=== PATIENT | male | born 1975 | race Caucasian/White ===

== ENCOUNTER 2018-02-20 12:36 | Emergency (ER) | payer SELFPAY ==
[2018-02-20 12:50] VITALS: BP 147/82; PULSE 77; RESP 14; TEMP 36.4; O2SAT 97
[2018-02-20] MEDS: methylPREDNISolone 125 MG/2 ML VIAL IV (13:00)
[2018-02-20] MEDS: diphenhydrAMINE 50 MG/ML VIAL 25 MG IV (13:00)
--- NOTE | 2018-02-20 13:03 | ED_ITS ---
HPI - Allergic Reaction General Chief complaint: Allergic Reaction Stated complaint: STUNG BY A BEE/ ALLERGIC Time Seen by Provider: 02/20/18 13:02 Source: patient Mode of arrival: ambulatory Limitations: no limitations History of Present Illness HPI narrative: 42-year-old male with a known anaphylactic reaction to bee sting states that he was stung on his left knee while in his truck. He did state that he took his EpiPen prior to arrival. States that his mouth feels dry otherwise no other complaints. Related Data Previous Rx's Medication Instructions Recorded epinephrine [EpiPen 2-Kevin] 0.3 mg IM Q10M PRN #1 each 02/20/18 Allergies Allergy/AdvReac Type Severity Reaction Status Date / Time venom-honey bee Allergy Unknown Unverified 11/18/17 12:19 [BEE VENOM (HONEY BEE)] BEE STINGS Allergy Severe Uncoded 11/18/17 12:19 Review of Systems Constitutional Denies fatigue and Denies fever(s) Eyes Denies itchy eyes ENT Ears, Nose, Mouth, and Throat: Denies vertigo, Denies dizziness, Denies lip swelling, Denies throat swelling and Denies tongue swelling Cardiovascular Denies chest pain, Denies palpitations and Denies dyspnea Respiratory Denies chest congestion, Denies cough, Denies dyspnea, Denies stridor and Denies wheezing Gastrointestinal Gastrointestinal: Denies constipation, Denies diarrhea, Denies nausea and Denies vomiting Genitourinary Denies dysuria and Denies flank pain Musculoskeletal Denies myalgias, Denies arthralgias and Denies joint swelling Comments: Bee sting to his left knee Integumentary/Breasts Denies rash and Reports wounds Neurologic Denies behavioral changes, Denies confusion, Denies vertigo and Denies dizziness Psychiatric Denies behavioral changes and Denies confusion Endocrine Denies fatigue and Denies palpitations Hematologic/Lymphatic Denies easy bleeding and Denies easy bruising Allergic/Immunologic Denies urticaria, Denies itchy eyes, Denies lip swelling, Denies throat swelling , Denies tongue swelling and Denies wheezing Exam Initial Vital Signs Initial Vital Signs: Vital Signs Temperature 97.6 F 02/20/18 12:50 Pulse Rate 77 02/20/18 12:50 Respiratory Rate 14 02/20/18 12:50 Blood Pressure 147/82 H 02/20/18 12:50 Pulse Oximetry 97 02/20/18 12:50 Const General: cooperative, healthy appearing, comfortable, well developed, well groomed and No acute distress Orientation: alert, awake and oriented x3 HENMT Head: normal to inspection, normocephalic and atraumatic Ears: hearing grossly normal bilaterally Nose: external nose normal Face and sinus: normal facial exam Mouth: oral mucosae normal, tongue normal, oropharynx normal and moist mucous membranes Chest Chest: normal inspection of the chest Resp Effort & Inspection: normal respiratory effort Auscultation: clear to auscultation bilaterally Cardio Rate: regular rate Rhythm: regular rhythm Heart Sounds: no murmurs GI Inspection: non-distended Palpation: soft, No firm and No tender Back/Spine/Pelvis Back: No CVA tenderness Skin Lesions: no lesions (Small pinpoint area of redness on his left anterior knee just proximal to the patella consistent with his stated history of bee sting) Rashes: no rashes Wounds: no wounds Neuro General: alert, awake and oriented x3 Cognition: normal cognition Speech: speech normal Gait: normal gait Motor: muscle tone normal throughout Sensory Exam: no sensory deficits noted Extrem General: normal to inspection, full ROM and capillary refill normal Psych Appearance: grossly normal, well kempt and not disheveled Course Orders Ordered: Discontinued Medications Diphenhydramine HCl (Benadryl) 25 mg IV NOW ONE Stop: 02/20/18 12:49 Last Admin: 02/20/18 13:00 Dose: 25 mg Famotidine (Pepcid) 20 mg in 50 mls @ 200 mls/hr IV NOW ONE Stop: 02/20/18 13:17 Last Infusion: 02/20/18 13:53 Dose: 0 mls/hr Admin: 02/20/18 13:10 Dose: 200 mls/hr Methylprednisolone (Solu-Medrol 125 Mg Vial) 125 mg IV NOW ONE Stop: 02/20/18 12:50 Last Admin: 02/20/18 13:00 Dose: 125 mg Vital Signs - 8 hr 02/20/18 12:50 Temperature 97.6 F Pulse Rate 77 Respiratory Rate 14 Blood Pressure 147/82 H Pulse Oximetry 97 MDM - Allergic Reaction MDM Narrative Medical decision making narrative: Patient given himself his EpiPen prior to arrival. He was given Solu-Medrol and H1 and H2 blockers here in the emergency department. He was observed here in the ER for approximately 4 hr after he gave himself his epinephrine without return of any symptoms. The bee sting on his left knee looks well. No signs of infection. I did refill his epi pens. He was given return precautions. He felt safe going home. He expressed understanding and agreement with plan Discharge Plan Departure Patient Disposition: Home, Self-Care Clinical Impression: Allergic reaction, Insect bite or sting Discharge Date/Time: 02/20/18 15:37 Interventions: ED Discharge Assessment Last Done: 02/20/18 15:33 Instructions: DI for Insect Bites and Stings Activity Restrictions/Additional Instructions: Make sure you keep an EpiPen with you. If you ever use your EpiPen in the future you do need to return to the emergency department. Return to the emergency department for any new symptoms, shortness of breath, rashes, vomiting or any other new or worsening symptoms Prescriptions: New epinephrine [EpiPen 2-Kevin] 0.3 mg/0.3 mL auto-injector 0.3 mg IM Q10M PRN (Reason: hypersensitivity reaction) Qty: 1 RF: 0
[2018-02-20] MEDS: FAMOTIDINE 20 MG/50 ML PIGGYBACK 200 MG IV (13:10)
[2018-02-20 13:14] VITALS: BP 143/83; PULSE 76; RESP 13; O2SAT 95
[2018-02-20 14:11] VITALS: BP 127/78; PULSE 66; RESP 13; O2SAT 95
[2018-02-20 14:30] VITALS: BP 120/83; PULSE 67; RESP 17; O2SAT 95
[2018-02-20 15:13] VITALS: BP 116/74; PULSE 68; RESP 15; O2SAT 96
[2018-02-20 15:33] VITALS: BP 116/74; PULSE 75; RESP 16; O2SAT 95
== END 2018-02-20 15:37 | disposition home or self-care (01) ==
PROVIDERS: Emergency Provider Emergency Medicine
DX: T63.441A Toxic effect of venom of bees, accidental (unintentional), initial encounter (principal)
CPT/HCPCS: 36591; 96365; 96375; 99283; 99284; J1200; J2930

== ENCOUNTER → 2019-09-08 11:35 | Outpatient (CLI) | payer OTHER, MEDICAID, SELFPAY ==
[2019-09-08 12:41] LABS: Add Manual Diff / Slide Review NO; Basophils Absolute Auto 0 /uL (0-100); Basophils Percent Auto 0.3 % (0-2); Eosinophils Absolute Auto 200 /uL (0-450); Eosinophils Percent Auto 2.5 % (2-4); Hematocrit 46.3 % (41-53); Hemoglobin 15.8 g/dL (13.5-17.5); Lymphocytes Absolute Auto 2300 /uL (1100-4500); Lymphocytes Percent Auto 32.2 % (25-40); Mean Corpuscular HGB Conc 34.1 % (30-36); Mean Corpuscular Hemoglobin 29.8 PG (26-34); Mean Corpuscular Volume 87.4 fL (80-100); Monocytes Absolute Auto 700 /uL (0-900); Monocytes Percent Auto 9.4 % (3-14); Neutrophils Absolute Auto 4000 /uL (1500-7000); Neutrophils Percent Auto 55.6 % (50-75); Platelet Count 227 X10^3/uL (150-400); Red Blood Cell Count 5.29 X10^6/uL (4.5-5.9); White Blood Cell Count 7.2 X10^3/uL (4.5-11.0)
[2019-09-08 12:57] LABS: Hemoglobin A1C% w Est Avg Glu 5.1 % (4.0-6.0)
[2019-09-08 13:56] LABS: Thyroid Stimulating Hormone 0.76 uIU/mL (0.47-4.68)
[2019-09-08 14:06] LABS: Alanine Aminotransferase 46 IU/L (<50); Albumin 4.6 g/dL (3.5-5.0); Albumin Globulin Ratio 1.5 (1.0-2.8); Alkaline Phosphatase 104 U/L (38-126); Aspartate Aminotransferase 34 IU/L (17-59); Bilirubin Total 0.4 mg/dL (0.2-1.3); Blood Urea Nitrogen 20 mg/dL (9-20); Calcium 9.5 mg/dL (8.4-10.2); Carbon Dioxide 24 mmol/L (22-32); Chloride 103 mmol/L (98-107); Cholesterol 195 mg/dL (140-199); Estimated Glomerular Filt Rate > 60.0 mL/min (>60); Globulin 3.1 g/dL (1.7-4.1); Glucose 89 mg/dL (70-100); HDL Cholesterol 47 mg/dL (40-60); HEMOLYSIS < 15 (0-50); LDL Cholesterol Calculated 111 mg/dL (<100); Potassium 4.4 mmol/L (3.4-5.1); Sodium 139 mmol/L (137-145); Total Protein 7.7 g/dL (6.3-8.2); Triglycerides 185 mg/dL (35-150)
[2019-09-08 15:34] LABS: Appearance Urine UA CLEAR; Bilirubin Urine UA NEGATIVE (NEGATIVE); Color Urine UA YELLOW; Glucose Urine UA NEGATIVE (Negative); Ketones Urine UA NEGATIVE (NEGATIVE); Leukocyte Esterase Urine UA NEGATIVE (NEGATIVE); Nitrite Urine UA NEGATIVE (Negative); Occult Blood Urine UA NEGATIVE (Negative); Protein Urine UA NEGATIVE (Negative); Urobilinogen Urine UA 0.2 E.U./dL (0.2)
== END ==
PROVIDERS: PCP Family Medicine; Visit Provider Family Medicine
DX: Z13.9 Encounter for screening, unspecified (principal)
CPT/HCPCS: 36415; 80053; 80061; 81003; 83036; 84443; 85025

== ENCOUNTER 2020-03-26 15:37 | Emergency (ER) | payer OTHER, MEDICAID, SELFPAY ==
[2020-03-26] VITALS (7 sets, daily range): BP systolic 122–158; BP diastolic 73–85; PULSE 66–80; RESP 17–22; TEMP 36.5; O2SAT 96–99; BMI 29.5
[2020-03-26] MEDS: SODIUM CHLORIDE 0.9% 1,000 ML 1000 ML IV (15:47)
[2020-03-26] MEDS: methylPREDNISolone 125 MG/2 ML VIAL IV (15:48)
[2020-03-26] MEDS: FAMOTIDINE 20 MG/50 ML PIGGYBACK 200 MG IV (15:48)
[2020-03-26] MEDS: diphenhydrAMINE 50 MG/ML VIAL IV (15:48)
--- NOTE | 2020-03-26 19:19 | ED_ITS ---
HPI - Allergic Reaction <LOUIE Gallo-BC - Last Filed: 03/26/20 19:29> General Chief complaint: Allergic Reaction Stated complaint: BEE STING ALLERGIC Time Seen by Provider: 03/26/20 15:40 Source: patient Mode of arrival: Ambulatory Limitations: no limitations History of Present Illness HPI narrative: The patient is a 44-year-old male with history of anaphylaxis who presents with a chief complaint of an allergic reaction to a bee sting. He is a former smoker, states that once he was stung by over 20 bees at the same time and had an anaphylactic reaction. He states he was stung by a bee about 20 minutes prior to arrival. He unfortunately did not his EpiPen with him as he was in a different vehicle. He presents to the emergency department denying any shortness of breath but complaining of stinging in his mouth and cheeks as well as his arm. He has not taken anything since the sting. He states he does not feel as though this is as bad as his previous reactions, though is concerned about the possibility. Related Data Previous Rx's Medication Instructions Recorded epinephrine [EpiPen 2-Kevin] 0.3 mg IM Q10M PRN #1 each 02/20/18 epinephrine 0.3 mg IM Q5-15M PRN #2 each 03/26/20 Allergies Allergy/AdvReac Type Severity Reaction Status Date / Time venom-honey bee Allergy Unknown Verified 03/26/20 15:45 [BEE VENOM (HONEY BEE)] BEE STINGS Allergy Severe Anaphylaxis Uncoded 03/26/20 15:45 Review of Systems <CHANDA Gallo - Last Filed: 03/26/20 19:29> Review of Systems Narrative: GENERAL: Denies chills, fatigue, malaise, fever, sweats. HEENT: See HPI RESPIRATORY: See HPI CARDIOVASCULAR: Denies chest pain, palpitations, orthopnea, edema, GASTROINTESTINAL: Denies nausea, vomiting, abdominal pain, diarrhea, constipation, melena. : Denies dysuria, frequency, incontinence, hematuria, urinary retention. MUSCULOSKELETAL: denies weakness, joint pain, or bony pain SKIN: Denies rash, skin lesions, or other NEUROLOGIC: Denies weakness, headache, numbness, change in speech, confusion, seizures, incoordination. PSYCHIATRIC: No concerning psychosocial issues. 12 point review of systems is negative except for those stated above Patient History <KRISTI Gallo - Last Filed: 03/26/20 19:29> Medical History (Updated 03/26/20 @ 17:49 by KRISTI Gallo) Fractures (Resolved) Migraines (Chronic) MRSA (methicillin resistant Staphylococcus aureus) (Resolved ~2011) Well adult (Acute) Family History (Updated 09/13/19 @ 21:51 by Vilma Grewal) Father Diabetes mellitus Hypertension Mother Hypertension Grandmother Breast cancer Social History Smoking Status: Former smoker alcohol intake: current (1-3 drinks per weeks) substance use type: former substance user (not used since 1999), marijuana, crack/cocaine, amphetamines, hallucinogens, 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 Normocephalic. No temporal or scalp tenderness. EYES: Pupils equal round and reactive. Extraocular motions intact. No scleral icterus. No injection or drainage. ENT: Nose without bleeding, purulent drainage or septal hematoma. Throat without erythema, tonsillar hypertrophy or exudate. Uvula midline. Airway patent. No oropharyngeal swelling noted NECK: Trachea midline. No JVD or lymphadenopathy. Supple, nontender, no meningeal signs. CARDIOVASCULAR: Regular rate and rhythm RESPIRATORY: Clear to auscultation. Breath sounds equal bilaterally. No wheezes, rales, or rhonchi. No cough. No increased respiratory effort. Speaking full sentences. GASTROINTESTINAL: Abdomen soft, non-tender, nondistended. No hepato- splenomegaly, or palpable masses. No guarding. EXTREMITIES: No clubbing, cyanosis, or edema. No joint tenderness, effusion, or edema noted. Using all extremities equally. BACK: Nontender without deformity or crepitance. No flank tenderness. NEURO: AOx3. SKIN: No rash or erythema on visible skin Initial Vital Signs Initial Vital Signs: Vital Signs Temperature 97.7 F 03/26/20 15:41 Respiratory Rate 22 03/26/20 15:41 Blood Pressure 158/77 H 03/26/20 15:41 <Yue Johnston DO - Last Filed: 03/26/20 20:42> Initial Vital Signs Initial Vital Signs: Vital Signs Temperature 97.7 F 03/26/20 15:41 Respiratory Rate 22 03/26/20 15:41 Blood Pressure 158/77 H 03/26/20 15:41 Scores <KRISTI Gallo - Last Filed: 03/26/20 19:29> GCS [place] coma scale eye opening: Spontaneous [place] coma scale verbal response: Orientated [place] coma scale motor response: Obey commands [place] coma scale total score: 15 Course <KRISTI Gallo - Last Filed: 03/26/20 19:29> Orders Ordered: Discontinued Medications Diphenhydramine HCl (Benadryl) 50 mg IV NOW ONE Stop: 03/26/20 15:44 Last Admin: 03/26/20 15:48 Dose: 50 mg Documented by: FERMIN Famotidine (Pepcid) 20 mg in 50 mls @ 200 mls/hr IV NOW ONE Stop: 03/26/20 15:57 Last Infusion: 03/26/20 16:10 Dose: 0 mls/hr Documented by: Admin: 03/26/20 15:48 Dose: 200 mls/hr Documented by: FERMIN Sodium Chloride (Normal Saline 0.9%) 1,000 mls @ 1,000 mls/hr IV BOLUS PRN PRN Reason: Fluid replacement Last Admin: 03/26/20 15:47 Dose: 1,000 mls/hr Documented by: FERMIN Methylprednisolone (Solu-Medrol 125 Mg Vial) 125 mg IV NOW ONE Stop: 03/26/20 15:44 Last Admin: 03/26/20 15:48 Dose: 125 mg Documented by: FERMIN Vital Signs Vital signs: Vital Signs - 8 hr 03/26/20 15:41 03/26/20 15:44 03/26/20 15:46 Temperature 97.7 F Pulse Rate 76 80 Respiratory Rate 22 18 Blood Pressure 158/77 H 152/85 H Pulse Oximetry 99 03/26/20 16:00 03/26/20 16:30 03/26/20 17:00 Temperature Pulse Rate 74 66 66 Respiratory Rate 22 17 19 Blood Pressure 136/74 122/76 127/73 Pulse Oximetry 98 98 96 03/26/20 17:30 Temperature Pulse Rate 66 Respiratory Rate 18 Blood Pressure 126/77 Pulse Oximetry 97 <Yue Johnston DO - Last Filed: 03/26/20 20:42> Orders Ordered: Discontinued Medications Diphenhydramine HCl (Benadryl) 50 mg IV NOW ONE Stop: 03/26/20 15:44 Last Admin: 03/26/20 15:48 Dose: 50 mg Documented by: FERMIN Famotidine (Pepcid) 20 mg in 50 mls @ 200 mls/hr IV NOW ONE Stop: 03/26/20 15:57 Last Infusion: 03/26/20 16:10 Dose: 0 mls/hr Documented by: Admin: 03/26/20 15:48 Dose: 200 mls/hr Documented by: FERMIN Sodium Chloride (Normal Saline 0.9%) 1,000 mls @ 1,000 mls/hr IV BOLUS PRN PRN Reason: Fluid replacement Last Admin: 03/26/20 15:47 Dose: 1,000 mls/hr Documented by: FERMIN Methylprednisolone (Solu-Medrol 125 Mg Vial) 125 mg IV NOW ONE Stop: 03/26/20 15:44 Last Admin: 03/26/20 15:48 Dose: 125 mg Documented by: FERMIN Vital Signs Vital signs: Vital Signs - 8 hr 03/26/20 15:41 03/26/20 15:44 03/26/20 15:46 Temperature 97.7 F Pulse Rate 76 80 Respiratory Rate 22 18 Blood Pressure 158/77 H 152/85 H Pulse Oximetry 99 03/26/20 16:00 03/26/20 16:30 03/26/20 17:00 Temperature Pulse Rate 74 66 66 Respiratory Rate 22 17 19 Blood Pressure 136/74 122/76 127/73 Pulse Oximetry 98 98 96 03/26/20 17:30 Temperature Pulse Rate 66 Respiratory Rate 18 Blood Pressure 126/77 Pulse Oximetry 97 MDM - Allergic Reaction <LOUIE Gallo-BC - Last Filed: 03/26/20 19:29> MDM Narrative Medical decision making narrative: The patient is a 44 year male who presents with a chief complaint of an allergic reaction to bee stings. He has history of anaphylactic reactions to bee sting, however did not need epinephrine today. He responded well to steroids, Benadryl, and H2 soledad. He was observed over 2 hours in the emergency department and stated he was ready go home. I did give him another prescription of EpiPen and we discussed at length keeping EpiPen with him at all times. I discussed at length monitoring for any signs of further allergic reactions or pharyngeal swelling, difficulty etcetera. Patient has no questions or concerns upon discharge and states understanding return precautions as well as follow-up care. He has remained hemodynamically stable throughout his stay in the emergency department. Discharge Plan Departure Patient Disposition: Home Clinical Impression: Allergic reaction Qualifiers: Encounter type: initial encounter Qualified Code(s): T78.40XA - Allergy, unspecified, initial encounter Discharge Date/Time: 03/26/20 18:06 Instructions: DI for Anaphylaxis, DI for General Allergic Reactions Activity Restrictions/Additional Instructions: Thank you for trusting us with your care today. As discussed, we treated you for an allergic reaction with steroids, Benadryl, and a type to histamine soledad I have given you a refill of your EpiPen, which I sent to [facility]. As discussed, please come back to the emergency department for any acute concerns such as shortness of breath etcetera Please follow-up with primary care provider in the next few days As discussed, please keep an EpiPen with you at all times. Prescriptions: New epinephrine 0.3 mg/0.3 mL auto-injector 0.3 mg IM Q5-15M PRN (Reason: anaphylaxis) Qty: 2 RF: 0 No Action epinephrine [EpiPen 2-Kevin] 0.3 mg/0.3 mL auto-injector 0.3 mg IM Q10M PRN (Reason: hypersensitivity reaction) Qty: 1 RF: 0 Referrals: Venancio Ontiveros DO [Primary Care Provider] - <Yue Johnston DO - Last Filed: 03/26/20 20:42> Cosign ED Attending Babar Attestation: I was immediately available in the department for consultation. Documentation has been reviewed. I agree with assessment and plan.
== END 2020-03-26 18:06 | disposition home or self-care (01) ==
PROVIDERS: Emergency Provider Nurse Practitioner Family; PCP Family Medicine
DX: T78.40XA Allergy, unspecified, initial encounter (principal); T63.441A Toxic effect of venom of bees, accidental (unintentional), initial encounter
CPT/HCPCS: 36415; 96365; 96375; 99284; J1200; J2930

== ENCOUNTER → 2020-05-10 10:12 | Outpatient (CLI) | payer OTHER, MEDICAID, SELFPAY ==
[2020-05-10 11:54] LABS: Specimen Label KIT
== END ==
PROVIDERS: PCP Family Medicine; Referring Provider Obstetrics & Gynecology; Visit Provider Obstetrics & Gynecology
DX: Z13.9 Encounter for screening, unspecified (principal)
CPT/HCPCS: 36415; 99001

== ENCOUNTER → 2021-01-22 14:45 | Outpatient (CLI) | payer OTHER, SELFPAY ==
--- NOTE | 2021-01-22 14:47 | DI.RAD.S_ITS ---
PROCEDURE: XR FINGER LT MIN 2V INDICATIONS: eval L INDEX fingertip crush injury 01/18/2021 TECHNIQUE: AP hand, 2 views of the 2nd finger(s) acquired. COMPARISON: None. FINDINGS: Bones: No dislocations. No suspicious bony lesions. Distal tuft fracture 2nd digit Soft tissues: No suspicious soft tissue calcifications. IMPRESSION: Soft tissue swelling and distal tuft fracture 2nd digit. 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 Dictated by: Quincy Carolina M.D. on 01/22/2021 at 15:27 Approved by: Quincy Carolina M.D. on 01/22/2021 at 15:28
== END ==
PROVIDERS: PCP Family Medicine; Referring Provider Registered Nurse Diabetes Educator; Visit Provider Registered Nurse Diabetes Educator
DX: S67.191A Crushing injury of left index finger, initial encounter (principal); S62.631A Displaced fracture of distal phalanx of left index finger, initial encounter for closed fracture; M19.042 Primary osteoarthritis, left hand; M79.89 Other specified soft tissue disorders; X58.XXXA Exposure to other specified factors, initial encounter
CPT/HCPCS: 73140

== ENCOUNTER → 2021-10-02 17:30 | Outpatient (CLI) | payer OTHER, SELFPAY ==
[2021-10-02 17:49] LABS: Semen Sperm Prescence Post-Vas Absent (ABSENT)
[2021-10-02 19:49] LABS: HIV 1 & 2 Ab/Ag 4th Gen Combo NEGATIVE (NEGATIVE); Hep C Virus Ab w/Reflex Quant NEGATIVE s/c (NEGATIVE)
[2021-10-03 02:36] LABS: Hepatitis B Surf AB Quant <3.1 mIU/mL (Immunity>9.9)
[2021-10-03 07:40] LABS: RPR Screen Non Reactive (Non Reactive)
== END ==
PROVIDERS: PCP Family Medicine; Referring Provider Obstetrics & Gynecology Reproductive Endocrinology; Visit Provider Family Medicine
DX: Z11.3 Encounter for screening for infections with a predominantly sexual mode of transmission (principal); Z11.59 Encounter for screening for other viral diseases; Z11.4 Encounter for screening for human immunodeficiency virus [HIV]
CPT/HCPCS: 36415; 86592; 86706; 86803; 87389; 89321

== ENCOUNTER → 2021-10-19 12:32 | Outpatient (CLI) | payer OTHER, SELFPAY ==
[2021-10-21 20:34] LABS: Hepatitis B Surface Antigen NEGATIVE s/c (NEGATIVE)
== END ==
PROVIDERS: PCP Family Medicine; Referring Provider Obstetrics & Gynecology Reproductive Endocrinology; Visit Provider Obstetrics & Gynecology Reproductive Endocrinology
DX: Z11.3 Encounter for screening for infections with a predominantly sexual mode of transmission (principal); Z11.59 Encounter for screening for other viral diseases
CPT/HCPCS: 36415; 87340

== ENCOUNTER 2022-05-03 16:40 | Emergency (ER) | payer OTHER, SELFPAY ==
[2022-05-03 18:12] VITALS: BP 165/96; PULSE 61; RESP 20; TEMP 36.2; O2SAT 99; BMI 28.8
[2022-05-03 18:32] LABS: Add Manual Diff / Slide Review NO; Basophils Absolute Auto 0 /uL (0-100); Basophils Percent Auto 0.4 % (0-2); Eosinophils Absolute Auto 100 /uL (0-450); Eosinophils Percent Auto 1.4 % (2-4); Hematocrit 44.4 % (41-53); Hemoglobin 15.5 g/dL (13.5-17.5); Lymphocytes Absolute Auto 1700 /uL (1100-4500); Lymphocytes Percent Auto 20.8 % (25-40); Mean Corpuscular HGB Conc 34.8 % (30-36); Mean Corpuscular Hemoglobin 29.9 PG (26-34); Monocytes Absolute Auto 600 /uL (0-900); Monocytes Percent Auto 7.6 % (3-14); Neutrophils Absolute Auto 5600 /uL (1500-7000); Neutrophils Percent Auto 69.8 % (50-75); Platelet Count 214 X10^3/uL (150-400); Red Blood Cell Count 5.17 X10^6/uL (4.5-5.9); Red Cell Distribution Width 13.2 % (11.6-14.8)
[2022-05-03 18:43] LABS: Alanine Aminotransferase 36 IU/L (<50); Albumin 4.7 g/dL (3.5-5.0); Albumin Globulin Ratio 1.3 (1.0-2.8); Alkaline Phosphatase 64 U/L (38-126); Aspartate Aminotransferase 37 IU/L (17-59); BUN Creatinine Ratio 25.4 (6-22); Bilirubin Total 0.5 mg/dL (0.2-1.3); Blood Urea Nitrogen 16 mg/dL (9-20); Calcium 9.9 mg/dL (8.4-10.2); Carbon Dioxide 25 mmol/L (22-32); Chloride 104 mmol/L (98-107); Estimated Glomerular Filt Rate > 60 mL/min (>60); Globulin 3.5 g/dL (1.7-4.1); Glucose 92 mg/dL (70-100); HEMOLYSIS 58 (0-50); Lipase 73 U/L (23-300); Potassium 4.3 mmol/L (3.4-5.1); Sodium 140 mmol/L (137-145); Total Protein 8.2 g/dL (6.3-8.2)
--- NOTE | 2022-05-04 00:02 | ED.CHESTPAIN ---
HPI - Chest Pain General Chief Complaint: Abdominal Pain Stated Complaint: sharp pain in rib cage Time Seen by Provider: 05/03/22 23:55 Source: patient Mode of arrival: Ambulatory Limitations: no limitations History of Present Illness HPI narrative: This is a 46-year-old male with no known medical issues has had a prior vasectomy. Patient was eating a ghost pepper today he states that he immediately afterwards had pain like a charcoal in his stomach that lasted for about an hour and has since resolved and maybe moved a little bit further through his gut. Patient states he has had spicy foods frequently he sometimes gets a warm belly or gut but states never had pain intense like this. States he is had similar peppers in the past although this is different. Patient does note that for the past 3 weeks he is had a little bit of bloating, he states 9 spicy foods have not been problematic noticed this seems to happen more when he eats. He denies fevers or chills. No chest pain or shortness of breath. He was nauseated today but had no vomiting. No diarrhea, no constipation, no black or bloody stools. No dysuria urgency or frequency. Denies daily medications, his only surgeries vasectomy. He is allergic to bees. No tobacco occasional alcohol, no illicit. Dr. Ontiveros is his primary care. Related Data Previous Rx's Medication Instructions Recorded epinephrine 0.3 mg/0.3 mL 0.3 mg (0.3 mL) IM Q10M PRN 02/20/18 injection, auto-injector (EpiPen hypersensitivity reaction #1 ea 2-Kevin) diazepam 10 mg tablet (Valium) 10 mg PO BEDTIME PRN sedation #1 05/16/21 tab oxycodone-acetaminophen 5 mg-325 1 tab PO ONCE PRN pain #2 tabs 05/16/21 mg tablet (Percocet) triamcinolone acetonide 0.5 % 1 applic topical BID #15 grams 06/18/21 topical cream Allergies Allergy/AdvReac Type Severity Reaction Status Date / Time venom-honey bee Allergy Unknown Verified 06/18/21 16:09 [BEE VENOM (HONEY BEE)] BEE STINGS Allergy Severe Anaphylaxis Uncoded 06/18/21 16:09 Review of Systems Review of Systems ROS Unobtainable: All systems reviewed & are unremarkable except as noted in HPI and below Patient History Medical History Fractures Migraines MRSA (methicillin resistant Staphylococcus aureus) (~2011) Well adult Family History Father Diabetes mellitus Hypertension Mother Hypertension Grandmother Breast cancer Social History Smoking Status: Former smoker alcohol intake: current substance use type: former substance user, marijuana, crack/cocaine, amphetamines, hallucinogens, 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 RESPIRATORY: Breath sounds equal bilaterally, no wheezes rales or rhonchi. ABDOMEN: Soft, nontender. Normoactive bowel sounds all 4 quadrants. No guarding or rebound, rigidity, no mass : No CVA tenderness EXTREMITIES: Normal range of motion, no clubbing or edema. Neurovascularly intact NEUROLOGICAL: Cranial nerves II through XII grossly intact. Moving all extremities SKIN: Warm, dry, no petechiae, no rashes or lesions. Initial Vital Signs Initial Vital Signs: Vital Signs Temperature 97.1 F L 05/03/22 18:12 Pulse Rate 61 05/03/22 18:12 Respiratory Rate 20 05/03/22 18:12 Blood Pressure 165/96 H 05/03/22 18:12 Pulse Oximetry 99 05/03/22 18:12 Oxygen Delivery Method 05/03/22 18:12 Course Orders Ordered: ED Orders 05/04/22 00:05 Troponin & CK Cardiac Panel Stat Vital Signs Vital signs: Vital Signs - 8 hr 05/04/22 00:54 Pulse Rate 58 L Respiratory Rate 18 Blood Pressure 140/91 H Pulse Oximetry 99 Oxygen Delivery Method Room Air MDM - Chest Pain Lab Data Result diagrams: 05/03/22 18:00 05/03/22 18:00 Labs: Lab Results 05/03/22 05/03/22 05/03/22 Range/Units 18:00 18:00 18:20 WBC 8.0 (4.5-11.0) X10^3/uL RBC 5.17 (4.5-5.9) X10^6/uL Hgb 15.5 (13.5-17.5) g/dL Hct 44.4 (41-53) % MCV 86.0 (80-100) fL MCH 29.9 (26-34) PG MCHC 34.8 (30-36) % RDW 13.2 (11.6-14.8) % Plt Count 214 (150-400) X10^3/uL Neut % (Auto) 69.8 (50-75) % Lymph % (Auto) 20.8 L (25-40) % [place] % (Auto) 7.6 (3-14) % Eos % (Auto) 1.4 L (2-4) % Baso % (Auto) 0.4 (0-2) % Neut # (Auto) 5600 (2522-1161) /uL Lymph # (Auto) 1700 (7309-1102) /uL [place] # (Auto) 600 (0-900) /uL Eos # (Auto) 100 (0-450) /uL Baso # (Auto) 0 (0-100) /uL Sodium 140 (137-145) mmol/L Potassium 4.3 (3.4-5.1) mmol/L Chloride 104 (98-107) mmol/L Carbon Dioxide 25 (22-32) mmol/L BUN 16 (9-20) mg/dL Creatinine 0.63 L (0.66-1.25) mg/dL Estimated GFR > 60 (>60) mL/min BUN/Creatinine Ratio 25.4 H (6-22) Glucose 92 (70-100) mg/dL Calcium 9.9 (8.4-10.2) mg/dL Total Bilirubin 0.5 (0.2-1.3) mg/dL AST 37 (17-59) IU/L ALT 36 (<50) IU/L Alkaline Phosphatase 64 (38-126) U/L Total Creatine Kinase 195 H (55-170) U/L CK-MB (CK-2) 2.47 H (<2.37) ng/mL CK-MB (CK-2) Rel Index 1.3 L (1.5-5.0) % Troponin I < 0.012 (0.01-0.034) ng/mL Total Protein 8.2 (6.3-8.2) g/dL Albumin 4.7 (3.5-5.0) g/dL Globulin 3.5 (1.7-4.1) g/dL Albumin/Globulin Ratio 1.3 (1.0-2.8) Lipase 73 (23-300) U/L ECG Data Attestation: I personally reviewed and interpreted this ECG as follows: Prior ECG tracings: not available for review Interpretation: Sinus bradycardia incomplete right bundle-branch. Rate of 58 [place] 184 QRS of 100 and QTC of 408. No acute ST changes noted. Patient does not have priors for comparison MDM Narrative Medical decision making narrative: This is a 46-year-old male who presents with epigastric abdominal pain that presented shortly after ingesting a ghost pepper. Patient's EKG shows incomplete right bundle-branch but has no priors for comparison, CBC, CMP, lipase are negative as well as troponin. Discharge Plan Departure Patient Disposition: Home Clinical Impression: Acute epigastric pain Activity Restrictions/Additional Instructions: I believe your discomfort today was from the pepper you ingested. If you have persistent discomfort with spicy foods or regular foods would recommend Pepcid 40 mg once daily and follow-up with your physician to have an EGD to evaluate for ulcers or gastritis. Please return if you are having new or worsening symptoms, persistent pain, fevers, vomiting, chest pain or shortness of breath or other new or concerning symptoms. Prescriptions: No Action diazepam [Valium] 10 mg tablet 10 mg PO BEDTIME PRN (Reason: sedation) Qty: 1 0RF oxycodone-acetaminophen [Percocet] 5-325 mg tablet 1 tab PO ONCE PRN (Reason: pain) Qty: 2 0RF triamcinolone acetonide 0.5 % cream 1 applic topical BID Qty: 15 1RF epinephrine [EpiPen 2-Kevin] 0.3 mg/0.3 mL auto-injector 0.3 mg IM Q10M PRN (Reason: hypersensitivity reaction) Qty: 1 0RF Rx Instructions: until response Referrals: Venancio Ontiveros, DO [Primary Care Provider] - Visit Report Forms: Patient Portal/API
[2022-05-04 00:32] LABS: Creatine Kinase 195 U/L (55-170)
[2022-05-04 00:45] LABS: Troponin I < 0.012 ng/mL (0.01-0.034)
[2022-05-04 00:47] LABS: CKMB % Relative Index 1.3 % (1.5-5.0); Creatine Kinase MB 2.47 ng/mL (<2.37)
[2022-05-04 00:54] VITALS: BP 140/91; PULSE 58; RESP 18; O2SAT 99
== END 2022-05-04 00:58 | disposition home or self-care (01) ==
PROVIDERS: Emergency Provider Emergency Medicine; PCP Family Medicine
DX: R10.13 Epigastric pain (principal); R11.0 Nausea
CPT/HCPCS: 36415; 80053; 82550; 82553; 83690; 84484; 85025; 93005; 99283; 99284

== ENCOUNTER → 2024-01-04 13:47 | Outpatient (CLI) | payer SELFPAY ==
[2024-01-04 14:36] LABS: Influenza A - CEPHEID Flu A NEGATIVE (NEGATIVE); Influenza B - CEPHEID Flu B NEGATIVE (NEGATIVE); Respiratory Syncytial Virus Negative (Negative)
[2024-01-04 14:46] LABS: COVID-19 CEPHEID 4-PLEX PCR Negative (Negative)
== END ==
PROVIDERS: PCP Family Medicine; Visit Provider Registered Nurse
DX: R05.9 Cough, unspecified (principal); R06.2 Wheezing; R06.02 Shortness of breath
CPT/HCPCS: 0241U

== ENCOUNTER → 2024-01-04 14:16 | Outpatient (CLI) | payer SELFPAY ==
--- NOTE | 2024-01-04 14:18 | DI.RAD.S_ITS ---
PROCEDURE: XR CHEST 2V INDICATIONS: Shortness of breath TECHNIQUE: 2 views of the chest were acquired. COMPARISON: None. FINDINGS: Surgical changes and devices: None. Lungs and pleura: Lungs are clear. No pleural effusions or pneumothorax. Mediastinum: Mediastinal contours are normal. Heart size is normal. Bones and chest wall: No suspicious bony abnormalities. Soft tissues appear unremarkable. IMPRESSION: No acute cardiopulmonary abnormality is seen. Dictated by: Kai Alejandra M.D. on 01/04/2024 at 14:35 Approved by: Kai Alejandra M.D. on 01/04/2024 at 14:35
== END ==
PROVIDERS: PCP Family Medicine; Referring Provider Registered Nurse; Visit Provider Registered Nurse
DX: R06.02 Shortness of breath (principal)
CPT/HCPCS: 71046

== ENCOUNTER → 2024-06-10 09:00 | Outpatient (CLI) | payer OTHER, SELFPAY ==
[2024-06-10 09:54] LABS: Add Manual Diff / Slide Review NO; Basophils Absolute Auto 0 /uL (0-100); Basophils Percent Auto 0.4 % (0-2); Eosinophils Absolute Auto 200 /uL (0-450); Hematocrit 47.1 % (41-53); Hemoglobin 15.9 g/dL (13.5-17.5); Lymphocytes Absolute Auto 2100 /uL (1100-4500); Lymphocytes Percent Auto 28.1 % (25-40); Mean Corpuscular HGB Conc 33.8 % (30-36); Mean Corpuscular Volume 88.7 fL (80-100); Monocytes Absolute Auto 800 /uL (0-900); Monocytes Percent Auto 10.2 % (3-14); Neutrophils Absolute Auto 4400 /uL (1500-7000); Neutrophils Percent Auto 58.3 % (50-75); Platelet Count 218 X10^3/uL (150-400); Red Blood Cell Count 5.31 X10^6/uL (4.5-5.9); Red Cell Distribution Width 13.9 % (11.6-14.8); White Blood Cell Count 7.5 X10^3/uL (4.5-11.0)
[2024-06-10 10:09] LABS: Alanine Aminotransferase 27 IU/L (<50); Albumin 4.4 g/dL (3.5-5.0); Albumin Globulin Ratio 1.6 (1.0-2.8); Alkaline Phosphatase 76 U/L (38-126); Aspartate Aminotransferase 25 IU/L (17-59); BUN Creatinine Ratio 17.6 (6-22); Bilirubin Total 0.7 mg/dL (0.2-1.3); Blood Urea Nitrogen 13 mg/dL (9-20); Calcium 9.6 mg/dL (8.4-10.2); Carbon Dioxide 28 mmol/L (22-32); Chloride 104 mmol/L (98-107); Cholesterol 156 mg/dL (140-199); Estimated Glomerular Filt Rate > 60 mL/min (>60); Globulin 2.8 g/dL (1.7-4.1); Glucose 106 mg/dL (70-100); HDL Cholesterol 49 mg/dL (40-60); HEMOLYSIS < 15 (0-50); LDL Cholesterol Calculated 91 mg/dL (<100); Potassium 4.8 mmol/L (3.4-5.1); Sodium 139 mmol/L (137-145); Total Protein 7.2 g/dL (6.3-8.2); Triglycerides 82 mg/dL (35-150)
[2024-06-10 10:40] LABS: Prostate Specific Antigen 0.968 ng/mL (0.10-4.00)
== END ==
PROVIDERS: PCP Family Medicine; Referring Provider Family Medicine; Visit Provider Family Medicine
DX: Z00.00 Encounter for general adult medical examination without abnormal findings (principal); Z83.79 Family history of other diseases of the digestive system; R10.9 Unspecified abdominal pain
CPT/HCPCS: 36415; 80053; 80061; 84153; 85025

== ENCOUNTER → 2024-07-16 09:47 | Outpatient (CLI) | payer OTHER, SELFPAY ==
--- NOTE | 2024-07-16 09:48 | DI.CT.S_ITS ---
PROCEDURE: CT KIDNEY URETER BLADDER (KUB) INDICATIONS: eval kidney stones TECHNIQUE: Axial sections were acquired from the lung bases to the pubic symphysis. Coronal and sagittal reformats were performed. For radiation dose reduction, the following was used: automated exposure control, adjustment of mA and/or kV according to patient size. COMPARISON: None. FINDINGS: Image quality: Diagnostic. Lower Chest: No significant findings. URINARY: Right Kidney: No stones or hydronephrosis. Right Ureter: No hydroureter, ureteral calculus, or periureteric inflammation. Left Kidney: No stones or hydronephrosis. Left Ureter: No hydroureter, ureteral calculus, or periureteric inflammation. Bladder: Normal wall thickness. No stones. ABDOMEN: Liver: No contour-deforming solid mass. Gallbladder: No wall thickening or calcified stones. Biliary ducts: No biliary dilation. Pancreas: Normal size and morphology without visible ductal dilatation or inflammation. Spleen: Size is within normal limits. Adrenal Glands: No adrenal nodules. Stomach and Bowel: Stomach and small bowel loops are normal caliber. Normal appendix. Distal descending and sigmoid colon diverticulosis. Otherwise normal colon. Peritoneum: No abnormal intraperitoneal fluid. No free air. Ventral Wall: No hernia. Abdominal Nodes: No enlarged retroperitoneal or mesenteric lymph nodes. Vessels: The abdominal aorta, IVC, and portal vein are of normal caliber. PELVIS: Pelvic Organs: Mild prostatomegaly. Pelvic Nodes: Unremarkable. Miscellaneous: No inguinal hernias are seen. Bones: Unremarkable. IMPRESSION: No urinary calcifications or CT evidence of obstructive uropathy. Distal colonic diverticulosis. Dictated by: Ly Valdez M.D. on 07/16/2024 at 21:56 Approved by: Ly Valdez M.D. on 07/16/2024 at 22:00
== END ==
PROVIDERS: PCP Family Medicine; Referring Provider Family Medicine; Visit Provider Family Medicine
DX: K57.30 Diverticulosis of large intestine without perforation or abscess without bleeding (principal); N20.0 Calculus of kidney; R10.9 Unspecified abdominal pain; N40.0 Benign prostatic hyperplasia without lower urinary tract symptoms
CPT/HCPCS: 74176